=== PATIENT | female | born 1935 | race Caucasian/White ===

== ENCOUNTER 2023-07-19 18:52 | Emergency (ER) | payer OTHER ==
[~2023-07-19] VITALS: Ht 154.9 cm; Wt 77.1 kg
[2023-07-19] MEDS ORDERED: GALANTAMINE4 MG/1 ML PO (19:24)
[2023-07-19] MEDS ORDERED: PLAQUENIL (19:25)
[2023-07-19] MEDS ORDERED: SPIRINOLACTONE (19:25)
[2023-07-19] MEDS ORDERED: METROPOLOL (19:25)
[2023-07-19] MEDS ORDERED: VALSARTAN4 MG/1 ML PO (19:25)
[2023-07-19] MEDS ORDERED: FUROSEMIDE5 GM (19:25)
[2023-07-19] MEDS ORDERED: XARELTO10 MG (19:25)
[2023-07-19] MEDS ORDERED: PROLIA60 MG/1 ML (19:26)
[2023-07-19] MEDS ORDERED: FLONASE16 GM NS (19:26)
[2023-07-19] MEDS ORDERED: FOLIC ACID0.8 M1 (19:26)
[2023-07-19] MEDS ORDERED: [UNRECOGNIZED DRUG - OTHER] (19:26)
[2023-07-19] MEDS ORDERED: ATORVASTATIN CA10 MG PO (19:26)
[2023-07-19 21:48] LABS: HEMATOCRIT 36.8 % (36.0-45.00); HEMOGLOBIN 11.9 g/dL (12.0-15.00); MEAN CELL VOLUME 94.3 fL (80.00-100.00); MEAN CORPUSCULAR HEMOGLOBIN 30.4 pg (27.00-32.0); MEAN CORPUSCULAR HGB CONC 32.3 g/dl (32.0-36.0); PLATELET COUNT 161 K/uL (150-450); RED CELL DISTRIBUTION WIDTH 18.5 % (11.5-14.5)
[2023-07-19 22:31] LABS: CALCIUM 9.5 mg/dL (8.5-10.1); CREATININE SERUM 0.82 mg/dL (0.55-1.02); GFR 66.1
[2023-07-19 22:32] LABS: POTASSIUM 4.45 mEq/L (3.5-5.1)
== END 2023-07-19 22:56 | disposition home or self-care (01) ==
LOC: ER 18:53
PROVIDERS: General Practice
DX: L03.115 Cellulitis of right lower limb (principal)
CPT/HCPCS: 36415; 96365; 99284; J0696